=== PATIENT | male | born 1955 | race Caucasian/White ===

== ENCOUNTER 2016-08-23 20:30 | Emergency (ER) | payer BC ==
[~2016-08-23 20:30] MED LIST: Ambien PO; Aspirin E.C. PO; CRESTOR20 MG PO; Flexeril PO; GLUCAGEN1 MG IM/SC; Norvasc PO; Vasotec PO; Vicodin,Norco 5/325 PO; Vitamin D, Drisdol PO
== END 2016-08-23 20:42 | disposition left against medical advice (07) ==
LOC: EME 20:30
DX: R10.9 Unspecified abdominal pain (principal); Z53.21 Procedure and treatment not carried out due to patient leaving prior to being seen by health care provider